=== PATIENT | female | born 1990 | race American Indian/Alaskan Native ===

== ENCOUNTER 2018-06-12 06:30 | Inpatient (IN) | payer MEDICAID ==
[2018-06-12] MEDS ORDERED: PITOCin/NS 20 UNIT/1000ML DRIP 20,000 MILLIUNITS/1,000 ML BAG IV ONE (06:56)
[2018-06-12] MEDS ORDERED: PITOCin/NS 20 UNIT/1000ML DRIP 20 UNITS/1,000 ML BAG IV SCH (07:00)
[2018-06-12 07:35] LABS: Basophils % (Auto) 0.1 % (0.0-1.8); Eosinophils # (Auto) 0.1 K/mm3 (0.0-0.4); Eosinophils % (Auto) 0.6 % (0.0-4.3); Hematocrit 31.6 % (30.3-42.9); Hemoglobin 9.8 gm/dl (10.1-14.3); Lymphocytes # (Auto) 1.8 K/mm3 (1.2-5.4); Lymphocytes % (Auto) 13.2 % (13.4-35.0); Mean Corpuscular HGB Conc 31 % (30-34); Mean Corpuscular Volume 79 fl (79-97); Monocytes # (Auto) 0.9 K/mm3 (0.0-0.8); Monocytes % (Auto) 6.4 % (0.0-7.3); Platelet Count 335 K/mm3 (140-440); Red Blood Count 4.02 M/mm3 (3.65-5.03); Red Cell Distribution Width 18.3 % (13.2-15.2)
[2018-06-12] MEDS ORDERED: LANSINOH TP PRN (09:36)
[2018-06-12] MEDS ORDERED: TUCKS PAD TP PRN (09:36)
[2018-06-12] MEDS ORDERED: DULCOLAX PR PRN (09:36)
[2018-06-12] MEDS ORDERED: BENADRYL PO PRN (09:36)
[2018-06-12] MEDS ORDERED: MILK OF MAGNESIA PO PRN (09:36)
[2018-06-12] MEDS ORDERED: PHENERGAN PO PRN (09:36)
[2018-06-12] MEDS ORDERED: TYLENOL PO PRN (09:36)
--- NOTE | 2018-06-12 09:58 | History and Physical Report ---
History of Present Illness Date of examination: 06/12/18 Date of admission: 06/12/18 06:30 Chief complaint: Labor. History of present illness: 27 year old had a precipitous spontaneous vaginal delivery of a liveborn female infant in [facility] as she was entering the building. Patient was taken to L&D where she delivered the placenta. Patient states she has been receiving regular care at [facility] and was trying to make it to [facility] to deliver but had to stop here as labor was progressing rapidly. Patient states her has been uncomplicated. LMP 09/14/2017. EDC 06/21/2018. records were requested and obtained. significant for anemia, UTI, migraine headaches, and GBS positive. labs are as follows: A+, antibody screen negative, pap negative, rubella immune, VDRL nonreactive, hepatitis B surface antigen negative, HIV negative, GC negative, CT negative, CF negative, UDS positive for alcohol, MSAFP negative, GBS positive. Past History Past Medical History: other (obesity) Past Surgical History: no surgical history E [employer] History: denies: abnormal PAP smear, chlamydia, gonorrhea, hepatitis B, herpes, HIV, syphilis, trichomonas Family/Genetic History: none Social history: lives with family, full code. denies: smoking, prescription drug abuse, IV drug use - Obstetrical History Expected Date of Delivery: 06/21/18 Actual Gestation: 38 Week(s) 5 Day(s) : 4 Para: 3 Hx # Term Pregnancies: 4 Number of Pregnancies: 0 Spontaneous Abortions: 0 Induced : 0 Number of Living Children: 3 Medications and Allergies Allergies Allergy/AdvReac Type Severity Reaction Status Date / Time No Known Allergies Allergy Verified 08/31/13 14:44 Home Medications Medication Instructions Recorded Confirmed Last Taken Type No Known Home Medications [No 08/31/13 03/04/16 Unknown History Reported Home Medications] Active Meds: Active Medications Acetaminophen (Tylenol) 650 mg PO Q4H PRN PRN Reason: Pain MILD(1-3)/Fever >100.5/HODGE Bisacodyl (Dulcolax) 10 mg RI BID PRN PRN Reason: Constipation Diphenhydramine HCl (Benadryl) 25 mg PO Q6H PRN PRN Reason: Itching Oxytocin/Sodium Chloride (Pitocin/Ns 20 Unit/1000ml Drip) 20 units in 1,000 mls @ 0 mls/hr IV DIRECT FIDEL Ibuprofen (Motrin) 600 mg PO Q6H FIDEL Magnesium Hydroxide (Milk Of Magnesia) 30 ml PO HS PRN PRN Reason: Constipation Multi-Ingredient Ointment (Lansinoh) 1 applic TP PRN PRN PRN Reason: Sore Nipples Promethazine HCl (Phenergan) 25 mg PO Q6H PRN PRN Reason: Nausea And Vomiting Sodium Chloride (Sodium Chloride Flush Syringe 10 Ml) 10 ml IV PRN NR Stop: 06/13/18 09:59 Witch [place]/Glycerin (Tucks Pad) 1 each TP PRN PRN PRN Reason: Hemorrhoid/cleansing/soothing Review of Systems All systems: negative (labor) - Vital Signs Vital signs: Vital Signs Temp Pulse Resp BP 97 F L 80 16 144/78 06/12/18 07:50 06/12/18 07:50 06/12/18 07:50 06/12/18 07:50 Temp Pulse Resp BP Pulse Ox 97 F L 84 16 152/74 06/12/18 07:50 06/12/18 08:07 06/12/18 07:50 06/12/18 08:07 - Physical Exam Abdomen: Positive: normal appearance, soft. Negative: distention, tenderness, guarding, rigidity Genitourinary (Female): Positive: normal external genitalia, normal perenium. Negative: perineal/vulvar lesions Vagina: Positive: normal moisture Uterus: Positive: enlarged, other (examined patient after delivery of baby and at delivery of placenta) Anus/Rectum: Positive: normal perianal skin Extremities: Positive: normal. Negative: tenderness, edema Results Result Diagrams: 06/12/18 07:02 Abnormal lab results 06/12/18 Range/Units 07:02 WBC 13.7 H (4.5-11.0) K/mm3 Hgb 9.8 L (10.1-14.3) gm/dl MCH 24 L (28-32) pg RDW 18.3 H (13.2-15.2) % Lymph % (Auto) 13.2 L (13.4-35.0) % [place] # 0.9 H (0.0-0.8) K/mm3 Seg Neutrophils % 79.7 H (40.0-70.0) % Seg Neutrophils # 10.9 H (1.8-7.7) K/mm3 All other labs normal. Assessment and Plan A: at 38 weeks, 5 days gestation. Precipitous labor and delivery of viable female (patient delivered upon entrance to building). GBS positive. P: Admit. See orders.
[2018-06-12] MEDS ORDERED: SODIUM CHLORIDE FLUSH SYRINGE 10 ML IV NR (10:00)
[2018-06-12] MEDS ORDERED: IBUPROFEN PO ONE (10:06)
[2018-06-12] MEDS: IBUPROFEN PO SCH ×2 (10:07→18:01)
--- NOTE | 2018-06-12 10:08 | Procedure Note ---
OB Delivery Note - Delivery Date of Delivery: 06/12/18 Surgeon: FABIOLA CISSE Estimated blood loss: other (150 cc) - Vaginal Delivery presentation: vertex Delivery position: OA Intrapartum events: precipitous labor- <3hr (patient delivered precipitously as she was entering the [facility]) Delivery induction: none Delivery monitor: none Route of delivery: Delivery placenta: spontaneous Delivery cord: 3 umbilical vessels Episiotomy: none Delivery laceration: none Anesthesia: none Delivery comments: Precipitous vaginal delivery of liveborn female infant weighing 3.034 kg with apgars of 8/9. Patient delivered the baby in the [facility] [place]. Patient was taken immediately to L&D and placenta was delivered spontaneously and intact by hood mechanism. Trailing membranes. Vaginal and cervical sweep was performed and no membranes or clots were noted in vagina or cervix. Vaginal bleeding was minimal (150 cc) and fundus firm and midline. Patient did not have an IV yet so Pitocin was given IM after delivery of placenta. Vulva and perineum was carefully inspected and no lesions or lacerations noted. Sponge count correct. Mother and baby stable in birthing room.
[2018-06-12] MEDS ORDERED: FEOSOL PO SCH (11:00)
[2018-06-12] MEDS ORDERED: NORCO 5/325 PO PRN (12:13)
[2018-06-12 12:23] LABS: Albumin 3.3 g/dL (3.9-5); BUN/Creatinine Ratio 12; Blood Urea Nitrogen 6 mg/dL (7-17); Hemolysis Index 0
[2018-06-12 12:31] LABS: Bilirubin,Urine NEG (Negative); Blood,Urine LG (Negative); Color,Urine Yellow (Yellow); Mucus,Urine FEW /HPF; Protein,Urine <15 mg/dL mg/dL (Negative); Urobilinogen,Urine < 2.0 mg/dL (<2.0)
[2018-06-12 12:33] LABS: Amphetamine Screen,Urine PRESUMPTIVE NEGATIVE; Benzodiazepines Screen,Urine PRESUMPTIVE NEGATIVE; Cannabinoid Screen,Urine PRESUMPTIVE NEGATIVE; Cocaine Screen,Urine PRESUMPTIVE NEGATIVE; Methadone Screen,Urine PRESUMPTIVE NEGATIVE; Opiate Screen,Urine PRESUMPTIVE NEGATIVE
[2018-06-12 12:39] LABS: Uric Acid 3.5 mg/dL (3.5-7.6)
[2018-06-12 12:47] LABS: RBC,Urine > 182.0 /HPF (0.0-6.0)
[2018-06-12 12:58] LABS: Alanine Aminotransferase < 5 units/L (7-56)
[2018-06-12 21:10] LABS: Hematocrit 28.3 % (30.3-42.9); Hemoglobin 8.9 gm/dl (10.1-14.3)
[2018-06-13] MEDS: IBUPROFEN PO SCH ×3 (04:47→16:37)
[2018-06-13] MEDS: MACROBID PO SCH ×2 (09:55→22:56)
[2018-06-13] MEDS: FEOSOL PO SCH (09:56)
--- NOTE | 2018-06-13 12:56 | Progress Note ---
Objective - Vital Signs Vital Signs: Vital Signs - 12hr 06/13/18 07:35 Temperature 97.3 F L Pulse Rate 74 Respiratory 18 Rate Blood Pressure 111/65 [Left] - Labs Labs: Abnormal Labs 06/12/18 06/12/18 06/12/18 07:02 11:45 20:30 WBC 13.7 H Hgb 9.8 L 8.9 L Hct 28.3 L MCH 24 L RDW 18.3 H Lymph % (Auto) 13.2 L [place] # 0.9 H Seg Neutrophils % 79.7 H Seg Neutrophils # 10.9 H Carbon Dioxide 21 L BUN 6 L Creatinine 0.5 L ALT < 5 L Albumin 3.3 L Urine WBC (Auto) 06/12/18 Unknown WBC Hgb Hct MCH RDW Lymph % (Auto) [place] # Seg Neutrophils % Seg Neutrophils # Carbon Dioxide BUN Creatinine ALT Albumin Urine WBC (Auto) 19.0 H Laboratory Results - last 24 hr 06/12/18 06/12/18 06/12/18 07:02 11:45 20:30 Hgb 8.9 L Hct 28.3 L ALT < 5 L Drugs of Abuse Note RPR Nonreactive 06/12/18 Unknown Hgb Hct ALT Drugs of Abuse Note Disclamer RPR
--- NOTE | 2018-06-13 13:00 | Progress Note ---
Assessment and Plan - Patient Problems (1) Status post normal vaginal delivery Current Visit: Yes Status: Acute Plan to address problem: PPD 1 - stable Continue routine PP orders Discharge to home on 06/14/18 Follow up at [facility] in 6 weeks for exam (2) Anemia in puerperium, baby delivered during current episode of care Current Visit: Yes Status: Acute Plan to address problem: Asymptomatic Continue iron therapy Subjective - Subjective Date of service: 06/13/18 Principal diagnosis: PPD #1; s/p Patient reports: appetite normal, voiding normally, pain well controlled, ambulating normally, no dizzy ambulation [place]: doing well, other (breast and bottle feeding) Objective - Vital Signs Latest vital signs: Vital Signs Temp Pulse Resp BP BP Pulse Ox 06/13/18 07:35 97.3 F L 74 18 111/65 06/13/18 00:00 98.4 F 86 20 112/76 100 06/12/18 16:19 98.0 F 78 20 133/84 99 Intake and Output 06/12/18 06/13/18 06/13/18 23:59 07:59 15:59 Intake Total 240 480 360 Output Total 350 Balance -110 480 360 Intake: Oral 240 480 360 Output: Urine 350 Void 350 Other: Total, Intake Amount 240 480 360 Total, Output Amount 350 Voiding Method Toilet - Exam Cardiovascular: Present: Regular rate Lungs: Present: Clear to auscultation Abdomen: Present: normal appearance, soft Vulva: both: normal Uterus: Present: normal, firm, fundal height below umbilicus Extremities: Present: normal Comments: small lochia - Labs Labs: Abnormal lab results 06/12/18 06/12/18 Range/Units 11:45 20:30 Hgb 8.9 L (10.1-14.3) gm/dl Hct 28.3 L (30.3-42.9) % ALT < 5 L (7-56) units/L
--- NOTE | 2018-06-13 13:05 | Discharge Summary ---
Providers - Providers Date of Admission: 06/12/18 06:30 Date of discharge: 06/14/18 Attending physician: GIRISH VICTOR MD Primary care physician: GIRISH VICTOR MD Hospitalization Reason for admission: active labor, IUP at term Delivery: Episiotomy: none Laceration: none Other procedures: none complications: none Discharge diagnosis: IUP at term delivered [place] baby: female Hospital course: Uncomplicated Condition at discharge: Stable Disposition: GA-01 TO HOME OR SELFCARE - Discharge Diagnoses (1) Status post normal vaginal delivery Status: Acute (2) Anemia in puerperium, baby delivered during current episode of care Status: Acute Comment: Asymptomatic Continue iron therapy Plan - Discharge Medications Prescriptions: Ferrous Sulfate [Feosol 325 MG tab] 325 mg PO BID #60 tablet - Provider Discharge Summary Activity: routine, no sex for 6 weeks, no heavy lifting 4 weeks, no strenuous exercise Diet: routine Instructions: routine Additional instructions: [] Smoking cessation referral if applicable(refer to patient education folder for contact #) [] Refer to [facility]'s [facility] Booklet Call your doctor immediately for: * Fever > 100.5 * Heavy vaginal bleeding ( >1 pad per hour) * Severe persistent headache * Shortness of breath * Reddened, hot, painful area to leg or breast * Drainage or odor from incision. * Keep incision clean and dry at all times and follow doctor's instructions regarding bathing/showering - Follow up plan Follow up: GIRISH VICTOR MD [Primary Care Provider] - 6 Weeks (Follow up at [facility] in 6 weeks for exam)
[2018-06-14] MEDS: IBUPROFEN PO SCH (04:45)
[2018-06-14] MEDS: FEOSOL PO SCH ×2 (04:47→11:05)
[2018-06-14] MEDS: MACROBID PO SCH (11:05)
[2018-06-14 14:51] VITALS: BP 144/76
== END 2018-06-14 15:05 | disposition home or self-care (01) | DRG 775 ==
LOC: LD 06:30 → OB 09:07
PROVIDERS: ADMIT Obstetrics & Gynecology; ATTEND Obstetrics & Gynecology
PROC: 10E0XZZ Delivery of Products of Conception, External Approach (ICD-10-PCS; principal; 2018-06-12)
DX: O90.81 Anemia of the puerperium (principal); O99.215 Obesity complicating the puerperium; E66.9 Obesity, unspecified; D64.9 Anemia, unspecified
CPT/HCPCS: 36415; 80053; 80307; 81001; 84550; 85014; 85018; 85025; 86592; 86706; 86762; 87806; G0378; J2590